=== PATIENT | female | born 1945 | race Caucasian/White ===

== ENCOUNTER 2025-03-14 10:16 | Day surgery (SDC) | payer MEDICARE ==
[2025-03-13 11:42] VITALS: BMI 18.4
[2025-03-14 11:34] LABS: #Basophils Less than 0.03 10x3/uL (0.0-0.2); #Eosinophils 0.22 10x3/uL (0.0-0.5); #Monocytes 0.53 10x3/uL (0.0-1.1); #Neutrophils 2.57 10x3/uL (1.5-8.4); %Basophils 0.4 % (0.0-2.0); %Eosinophils 4.2 % (0.0-6.0); %Lymphocytes 35.7 % (18.0-47.0); %Monocytes 10.2 % (0.0-10.0); %Neutrophils 49.3 % (40.0-75.0); Hematocrit 37.3 % (34.9-44.5); Hemoglobin 11.6 g/dL (12.0-15.5); Mean Corpuscular Hemoglobin 28.9 pg (27.0-33.0); Mean Corpuscular Volume 92.8 fL (81.6-98.3); Platelet Count 262 10x3/uL (150-450); Red Blood Cell (RBC) Count 4.02 10x6/uL (3.90-5.03); White Blood Cell (WBC) Count 5.21 10x3/uL (3.5-10.5)
[2025-03-14 11:49] LABS: Anion Gap 12 mmol/L (10-20); BUN (Urea Nitrogen) 17 mg/dL (9.8-20.1); Calc. Creatinine Clearance 34 mL/min (70-130); Calcium 9.1 mg/dL (7.8-10.44); Carbon Dioxide 23 mmol/L (23-31); Chloride 111 mmol/L (98-107); Glucose 85 mg/dL (83-110); Potassium 3.9 mmol/L (3.5-5.1); Sodium 142 mmol/L (136-145)
[2025-03-14] MEDS ORDERED: PROPOFOL 20 ML ONE ×2 (12:18→12:46)
[2025-03-14] MEDS ORDERED: Bupivacaine/Epinephrine 0.25% 30 ML VIAL ONE (12:27)
[2025-03-14] MEDS ORDERED: CEFAZOLIN 2 GM VIAL ONE (12:27)
== END 2025-03-14 14:36 | disposition home or self-care (01) ==
LOC: CSHSDC 10:16
PROVIDERS: ATTEND Surgery
PROC: 0JH60WZ Insertion of Totally Implantable Vascular Access Device into Chest Subcutaneous Tissue and Fascia, Open Approach (ICD-10-PCS; principal; 2025-03-14)
DX: C56.2 Malignant neoplasm of left ovary (principal); E78.00 Pure hypercholesterolemia, unspecified; Z90.89 Acquired absence of other organs; Z90.49 Acquired absence of other specified parts of digestive tract; Z88.5 Allergy status to narcotic agent; Z88.1 Allergy status to other antibiotic agents; Z79.899 Other long term (current) drug therapy
CPT/HCPCS: 36561; 71045; 80048; 85025; C1788; J1642; J2704; J3010